=== PATIENT | female | born 1950 | race Caucasian/White ===

== ENCOUNTER → 2016-12-09 | Outpatient (CLI) | payer OTHER ==
[~2016-12-09] MED LIST: NS 100 ML IV 0 ML IV ONE
[2016-12-09 11:04] LABS: CREATININE 0.8 mg/dL (0.55-1.02)
== END ==
LOC: RAD 09:17
PROVIDERS: ATTEND Orthopaedic Surgery
DX: R07.89 Other chest pain (principal)
CPT/HCPCS: 36415; 82565; 84520; A4222

== ENCOUNTER → 2016-12-14 | Outpatient (CLI) | payer OTHER ==
[~2016-12-14] MED LIST changes: -NS 100 ML IV 0 ML IV ONE; +NS 100 ML IV 100 ML IV ONE
--- NOTE | 2016-12-15 11:25 | CT ---
HISTORY: Chest pain, positive family history, previous 3 vessel disease Cardiac CTA with calcium scoring. Technique: Multiple axial images of the chest were obtained on a [address] from the aortic arch to the base of the heart with retrospective cardiac gating. Noncontrast evaluation of the heart was performed for calcium scoring with prospective gating. After the administration of in travenous iodinated contrast retrospective gating of the heart was performed per vessel analysis. C ardiac functional analysis was performed with segmentation of the cardiac cycle. 3D reconstructions and vessel analysis were performed on a vital imaging workstation. AEC was utilized. Findings: A total calcium score of 1 Pink's in 428 is observed. The score results in high likelihood of coron sharon events given the age and sex matched cohort analysis. Extensive calcified atherosclerotic plaqu e is present with high likelihood of at least 1 significant Coronary narrowing. The patient is above the 90th percentile for age and sex. There is image degradation secondary to cardiac motion artifact. However, the visualized portions of the left circumflex and RCA demonstrate no focal flow-limiting stenosis. The left main is patent. A ramus intermedius is suspected incidentally common normal variant. However, there is densely calcif ied plaque within the proximal and mid LAD with positive remodelling but with suspected short segmen t 50-70% stenosis in the mid portion with less severe stenosis proximally and for which Coronary cat heterization is recommended. Functional analysis of the left ventricle: ? Ejection fraction 41 %. ? End-diastolic volume 128 mL ? End-systolic volume 75 mL. ? Stroke volume 53 mL ? ?ardiac output of 4.7 L/min Extracardiac findings: No pathologically enlarged lymphadenopathy can be observed. The aortic arch is unremarkable in its appearance with normal vascular configuration. No significant pericardial effusion can be identifie d. Mitral annular calcifications are noted. The visualized portions of the lung parenchyma are unre markable. No lytic or blastic lesions can be identified within the visualized bony thorax. The vis ualized portions of the abdomen demonstrate normal perfusion patterns of the spleen and liver. IMPRESSION: Extensive atherosclerotic disease with at least moderate stenosis of the mid LAD and probable mild p roximal LAD stenosis. Conventional angiography is recommended. Reported By:
== END ==
LOC: RAD 08:45
PROVIDERS: ATTEND Nuclear Medicine Nuclear Cardiology
DX: R07.89 Other chest pain (principal)
CPT/HCPCS: 75571; A4222